=== PATIENT | female | born 1965 | race Caucasian/White ===

== ENCOUNTER 2018-01-19 08:38 | Observation (INO) ==
[2018-01-19] MEDS ORDERED: Sodium Chloride 0.9% 2 ML Flush PRN IV.FLUSH (09:23)
[2018-01-19] MEDS ORDERED: Chlorhexidine Gluconate 2% 1 Pack (2 Cloths) TOPICAL ONE (09:30)
[2018-01-19] MEDS ORDERED: Metoprolol Tartrate 25 MG Tablet PO ONE (09:30)
[2018-01-19] MEDS ORDERED: Sodium Chlor 0.9% Inj 500 ML IV.CONT ONE (09:30)
[2018-01-19] MEDS ORDERED: Heparin - SQ 10,000 UNITS/ML Vial SQ SCH (09:30)
[2018-01-19] MEDS ORDERED: Lidocaine 1%/Epinephrine 1:100,000 Inj 30 ML Vial ONE (09:57)
[2018-01-19] MEDS ORDERED: ceFAZolin 2 GM Premix Inj 2 GM/50 ML PIGGYBACK IV.SIG SCH (10:00)
[2018-01-19] MEDS ORDERED: Sugammadex Inj 200 MG/2 ML Vial IV.PUSH ONE (11:49)
[2018-01-19] MEDS ORDERED: Ketamine Inj 50 MG/5 ML Syringe IV.PUSH ONE (11:50)
[2018-01-19] MEDS ORDERED: Neostigmine Inj 5 MG/5 ML Syringe IV.PUSH ONE (12:15)
[2018-01-19] MEDS ORDERED: Ketorolac Inj 30 MG/ML (IVP) Vial IV.PUSH ONE (12:15)
[2018-01-19] MEDS ORDERED: Lidocaine PF 1% Inj 5 ML Syringe OTHER ONE (12:15)
[2018-01-19] MEDS ORDERED: Glycopyrrolate Inj 1 MG/5 ML Syringe IV.PUSH ONE (12:15)
[2018-01-19] MEDS ORDERED: Methylene Blue Inj 100 MG/10 ML Vial IV.PUSH ONE (14:36)
[2018-01-19] MEDS ORDERED: LORazepam 0.5 MG Tablet PO PRN (15:06)
[2018-01-19] MEDS ORDERED: KCL 20 mEq/D5W/NaCl 0.45% Inj 1,000 ML ONE (15:10)
[2018-01-19] MEDS ORDERED: *Meperidine Inj 25 MG/ML Vial PERIprocedural Use ONLY ONE (15:33)
[2018-01-19] MEDS ORDERED: fentaNYL Citrate Inj 100 MCG/2 ML Ampul ONE (15:42)
[2018-01-19] MEDS ORDERED: *morphine SULFATE 4 MG/ML PERIprocedure ONLY ONE (15:47)
[2018-01-19] MEDS: KCL 20 mEq/D5W/NaCl 0.45% Inj 1,000 ML IV.CONT SCH ×2 (15:54→23:56)
[2018-01-19] MEDS: Ketorolac Inj 30 MG/ML (IVP) Vial IV.PUSH PRN ×2 (17:52→23:55)
[2018-01-19] MEDS ORDERED: Sodium Chloride 0.9% 2 ML Flush BID IV.FLUSH SCH (21:00)
[2018-01-19 21:39] VITALS: RESP 16
[2018-01-20 04:17] LABS: Baso % (Auto) 0.2 % (0.0-2.0); Hematocrit 36.5 % (35.0-46.0); Hemoglobin 12.2 gm/dL (11.6-15.3); Lymph # (Auto) 0.7 th/mm3 (1.0-4.8); Lymph % (Auto) 5.5 % (9.0-44.0); Mean Corpuscular HGB Conc 33.4 % (32.0-36.0); Mean Corpuscular Hemoglobin 30.6 pg (27.0-34.0); Mean Corpuscular Volume 91.7 fL (80.0-100.0); Mean Platelet Volume 7.2 fL (7.0-11.0); Mono # (Auto) 0.8 th/mm3 (0.0-0.9); Mono % (Auto) 6.3 % (0.0-8.0); Neut # (Auto) 10.8 th/mm3 (1.8-7.7); Platelet Count 278 th/mm3 (150-450); Red Blood Count 3.98 mil/mm3 (4.00-5.30); Red Cell Distribution Width 13.7 % (11.6-17.2); White Blood Count 12.3 th/mm3 (4.0-11.0)
[2018-01-20 04:44] LABS: Calcium 8.1 mg/dL (8.5-10.1); Carbon Dioxide 28.3 meq/L (21.0-32.0); Potassium 4.1 meq/L (3.5-5.1)
[2018-01-20] MEDS: Ketorolac Inj 30 MG/ML (IVP) Vial IV.PUSH PRN (06:16)
[2018-01-20 08:14] VITALS: BP 101/53; TEMP 98.5; O2SAT 82
--- NOTE | 2018-01-20 08:29 | MP ---
cc: Vani Richardson MD, David W MD TapiaSantago, Cecile DATE OF OPERATION: 01/19/2018 PREOPERATIVE DIAGNOSIS: Endometrial cancer. POSTOPERATIVE DIAGNOSIS: Endometrial cancer. PROCEDURE: Robotic-assisted laparoscopic hysterectomy, bilateral salpingo-oophorectomy. SURGEON: Vani Richardson MD ETCHER APPRENTICE PHOTOENGRAVING: [employer] optical assistant. ANESTHESIA: General endotracheal anesthesia. ESTIMATED BLOOD LOSS: 100 mL. IV FLUIDS: 1700 mL. URINE OUTPUT: 400 mL. INDICATIONS: A 52-year-old female with approximately a 2-month history of intermittent postmenopausal bleeding and cramping like pain, found on ultrasound to have a thickened endometrial stripe. This led to further evaluation including endometrial biopsy that showed grade 1 endometrial cancer. She was seen and counseled regarding these findings and recommendations for treatment. She was seen again in the preop holding area accompanied by her where her findings were again reviewed, plan of care was discussed. Questions were asked and answered. She expressed good understanding and agreed to move forward with surgery. FINDINGS: The uterus was not enlarged, sounded to approximately 6.5 cm. The tubes and ovaries grossly appeared normal. There were no appreciably enlarged pelvic or periaortic lymph nodes. There were no peritoneal implants or other notable anatomical abnormalities. Frozen section analysis on the uterus showed it to be a relatively small tumor approximately 1.5 cm in dimension with a depth of invasion estimated to be no more than 1-2 mm out of the myometrium 15 mm thick. There was no cervical extension. DESCRIPTION OF PROCEDURE: She was taken to the operating room and placed in dorsal lithotomy position, after general endotracheal anesthesia was administered. A timeout was undertaken. She was identified by site recognition and hospital ID bracelet and the proposed procedure was reviewed and confirmed. She was carefully positioned in padded Iván stirrups. Her arms were padded and secured to the sides and she was further secured to the operating table with egg crate padding and tape in a cross just over the shoulder fashion. All sites were noted to be properly aligned with no malalignment or pressure points. She was prepped in sterile fashion and draped below the waist, put in the lithotomy position. The cervix grasped. Uterine cavity sounded. Cervix dilated and a standard VCare manipulator inserted and secured in usual fashion. Terrazas catheter placed in the bladder. She was returned to low lithotomy position. Change of sterile gloves was undertaken. We completed draping in anticipation of laparoscopy, confirmed that there was an orogastric tube in the stomach on suction. With manual elevation of the abdominal wall and direct laparoscopic visualization, a 5 mm cannula introduced into the left upper quadrant and an atraumatic entry was confirmed as carbon dioxide gas was insufflated. Now under laparoscopic visualization, a 12 mm cannula placed in the midline above the umbilicus, 8 mm cannula was placed in the right upper quadrant and left lateral quadrant, and the original 5 exchanged for an 8 mm cannula. She was placed in Trendelenburg position. Peritoneal washings were obtained for cytology. The anatomy was surveyed with findings as described above. The small bowel was folded back on its mesenteric root. Three Ray-April sponges were placed around the root of the small bowel mesentery. The robotic system was brought into the operative field, attached in the usual fashion. Monopolar scissors, fenestrated bipolar forceps, and ProGrasp manipulator were placed in arms #1, 2, and 3 respectively and I took my place at the surgeon's console. Right round ligament was isolated, cauterized, transected. The anterior and posterior leaves of the broad ligament were opened. The right ureter was identified. The right infundibulopelvic ligament was isolated. The intervening peritoneum was opened. The right infundibulopelvic ligament was cauterized at the level of the pelvic brim and transected. Posterior peritoneum opened along the right side of the uterus and cervix and the right vesicouterine peritoneum dissected off the lower uterine segment and cervix. The right uterine vessels were skeletonized, cauterized, and transected as were the cardinal, paracervical, and uterosacral ligaments. Attention was directed toward the left side where the left round ligament was isolated, cauterized, and transected. The anterior and posterior leaf of the broad ligament were opened. Left ureter was identified. The left infundibulopelvic ligament was isolated. The intervening peritoneum was opened. The infundibulopelvic ligament was isolated to the level of the pelvic brim where it was cauterized and transected. Posterior peritoneum overlying the left side of the uterus and cervix and the left vesicouterine peritoneum was dissected off the lower uterine segment and cervix. Left uterine vessels were skeletonized, cauterized, and transected as were the cardinal, paracervical, and uterosacral ligaments. Colpotomy was performed. The specimen was removed transvaginally which included uterus, cervix, tubes, and ovaries. A pneumo-occluder balloon was placed in the vagina to maintain pneumoperitoneum. Instruments 1 and 3 exchanged for needle drivers as a 0 Vicryl suture was introduced. The vaginal cuff was closed starting to the left corner with full-thickness closure, incorporating the edge of the uterosacral ligament and posterior peritoneum, tied via instrument tie. The closure was held on countertraction as a full-thickness running continuous closure was carried across the vaginal cuff to the contralateral corner, where it was similarly fixed, secured, tied. The needle was cut and removed. Pelvis thoroughly irrigated. Small bleeders rendered hemostatic with bipolar cautery. The bladder was filled with saline dyed with methylene blue. It distended nicely under pressure. There were no areas of blue to suggest thinning of the bladder, certainly no extravasation of dye. There was a single area that was bleeding due to disruption of the perivesical fat, which was repaired with a single [id number] 3-0 Vicryl suture, rendered that hemostatic. There was good margin between the bladder edge and the vaginal cuff suture line. Good peristalsis of ureters bilaterally and the bladder was drained. To assist in continued hemostasis, hemostatic Debbie powder was placed across the vaginal cuff and the lateral pelvic sidewall dissection areas. The pathology came back showing a low-grade small minimally invasive tumor so it was felt that further dissection would be associated with morbidity that exceeded benefits. It was felt that all reasonable surgical objectives in this individual had been completed. The robotic instruments were removed. The robotic system was disengaged from the operative field. I reentered the bedside under sterile condition. Each of the 3 Ray-April sponges that were placed in the peritoneal cavity were removed individually, each inspected and noted to be removed in their entirety. Visual inspection confirmed that there were no remaining foreign objects in the peritoneal cavity and preliminary counts were correct. The 12 mm fascial defect was closed with interrupted 0 Vicryl sutures using a needle fascial closure device. Sutures were tied securely which rendered the fascia completely airtight and hemostatic. The remaining cannulas were withdrawn. Carbon dioxide gas was removed. Then, 3-0 Vicryl subcutaneous, 3-0 Vicryl subcuticular, and Steri-Strips were used to close these incisions. She was returned to dorsal lithotomy position. Inspection confirmed the vaginal cuff was well-supported, hemostatic, a little bit of slight ooze from some mucosal irritation at the top of the vagina and at the introitus with no focal active bleeders. The remainder of the hemostatic agent was placed in the vagina to assist in continued hemostasis in these areas. There were no remaining foreign objects in the vagina and final counts were correct. She was returned to dorsal supine position and was pending reversal of anesthesia when I left the operating room to precede her to the postanesthesia care unit. MD SAÚL Zendejas/sanjay , 07:32 AM , 07:45 AM
[2018-01-20 10:20] VITALS: PULSE 72
--- NOTE | 2018-01-20 13:35 | MD ---
cc: Vani Richardson MD, Cecille MD Billmeier,Jordan Meredith MD DATE OF DISCHARGE: 01/20/2018 DATE OF ADMISSION: 01/19/2018 DATE OF DISCHARGE: 01/20/2018 PROCEDURE: 01/19/2018: Robotic-assisted laparoscopic hysterectomy and bilateral salpingo-oophorectomy. DIAGNOSIS: Endometrial cancer. HOSPITAL COURSE: She did well in the early postop period. She was hemodynamically stable, tolerating oral intake. Terrazas catheter removed pending voiding. Ins and outs: 3420/5075. LABORATORY DATA: Labs this morning: H and H 12.2 and 36.5. BUN and creatinine 7 and 0.78, potassium 4.1. PHYSICAL EXAMINATION: VITAL SIGNS: Afebrile, pulse 66-78, respirations 13-18, blood pressure 93-110/56-59, O2 saturations greater than or equal to 96%. GENERAL: Alert and oriented x3. LUNGS: Clear mild basilar rales. CARDIOVASCULAR: Regular rate and rhythm. ABDOMEN: Soft. Incision is clean and dry. GYNECOLOGIC: No bleeding. ASSESSMENT: Postoperative day number 1, doing well in the early postop period. Findings at the time of surgery, steps taken and preliminary pathology reviewed, activities and restrictions again discussed; questions were asked and answered. She expressed good understanding. PLAN: I anticipate she will meet criteria for discharge to home today. She is to contact our office to schedule a followup in 2 weeks. She is to resume prior medications. She will have a prescription for Percocet and our office number is made available again should she have any questions or problems between now and the time of scheduled followup. MD SAÚL Zendejas/izabella , 07:24 AM , 07:29 AM
== END 2018-01-20 10:16 | disposition home or self-care (01) ==
LOC: HSDC 08:38 → HSDI 08:38 → HCPC 17:42
PROVIDERS: ADMIT Obstetrics & Gynecology Gynecologic Oncology; ATTEND Obstetrics & Gynecology Gynecologic Oncology